=== PATIENT | female | born 1985 | race Caucasian/White ===

== ENCOUNTER 2017-08-19 11:16 | Outpatient (CLI) | payer SELFPAY | END 2017-08-19 11:17 | disposition EMS.NT | LOC: EMS 11:16 | PROVIDERS: ATTEND Surgery | DX: Z72.89 Other problems related to lifestyle (principal) ==

== ENCOUNTER 2018-09-08 22:05 | Outpatient (CLI) | payer SELFPAY ==
--- NOTE | 2018-09-09 00:07 | Ultrasound Report ---
Reason: 1ST TRIMESTER BLEEDING,VIABILITY DATING Procedure Date: 09/08/2018 Accession Number: [id number] / [id number] Procedure: US - OB First Trimester CPT Code: FULL RESULT: EXAM: FIRST TRIMESTER OBSTETRIC ULTRASOUND (Less than 11 weeks) EXAM DATE: 09/08/2018 11:10 PM. CLINICAL HISTORY: First trimester bleeding, viability dating. LMP: Unknown. COMPARISONS: None. TECHNIQUE: Transabdominal and transvaginal ultrasound examination with static image documentation. FINDINGS: Gestational Sac: No intrauterine or extrauterine seen. Placenta: Not visible at this gestational age. Amniotic fluid: Not accurately assessed at this gestational age. Uterus: Unremarkable anteverted appearance. Cervix: Unremarkable. Right Ovary: Volume 12 cc. Normal echotexture and blood flow. Left Ovary: Volume 14 cc. Normal echotexture and blood flow. Free Fluid: None. Other: None. IMPRESSION: No intrauterine or extrauterine seen. Clinical and ultrasound follow-up suggested to ensure viability of and to entirely exclude ectopic. RADIA
== END 2018-09-08 22:06 | disposition home or self-care (01) ==
LOC: DI 22:05
PROVIDERS: ATTEND Midwife
DX: O26.841 Uterine size-date discrepancy, first trimester (principal); O03.4 Incomplete spontaneous abortion without complication
CPT/HCPCS: 76801; 76817

== ENCOUNTER 2018-09-23 11:37 | Emergency (ER) | payer SELFPAY ==
[2018-09-23 12:21] LABS: BILIRUBIN,URINE NEGATIVE (NEGATIVE); GLUCOSE, URINE (UA) NEGATIVE (NEGATIVE); KETONES,URINE (UA) NEGATIVE (NEGATIVE); LEUKOCYTE ESTERASE, URINE NEGATIVE (NEGATIVE); NITRITE,URINE NEGATIVE (NEGATIVE); OCCULT BLOOD,URINE TRACE-LYSE (NEGATIVE); PROTEIN,URINE TRACE mg/dL (NEGATIVE); UROBILINOGEN,URINE 0.2 (NORMAL) E.U./dL (NORMAL)
[2018-09-23 12:36] LABS: BASOPHILS # (AUTO) 0.1 10^3/uL (0.0-0.1); BASOPHILS % (AUTO) 2.8 %; EOSINOPHILS % (AUTO) 0.1 %; HGB - HEMOGLOBIN 14.4 g/dL (12.0-16.0); LYMPHOCYTES # (AUTO) 1.3 10^3/uL (1.5-3.5); LYMPHOCYTES % (AUTO) 40.1 %; MEAN CORPUSCULAR HEMOGLOBIN 34.9 pg (27.0-31.0); MEAN CORPUSCULAR HGB CONC 34.6 g/dL (32.0-36.0); MEAN PLATELET VOLUME 7.3 fL (7.9-10.8); MONOCYTES # (AUTO) 0.4 10^3/uL (0.0-1.0); NEUTROPHILS # (AUTO) 1.5 10^3/uL (1.5-6.6); PLT - PLATELET COUNT 131 10^3/uL (130-450); RED BLOOD COUNT 4.13 10^6/uL (4.20-5.40); RED CELL DISTRIBUTION WIDTH 17.4 % (12.0-15.0); WHITE BLOOD COUNT 3.3 x10^3/uL (4.8-10.8)
[2018-09-23 12:38] LABS: CLARITY,URINE CLEAR (CLEAR); HCG UR QUAL NEGATIVE
--- NOTE | 2018-09-23 12:56 | ED Physician Documentation ---
PD HPI ABD PAIN - Stated complaint Stated Complaint: LLQ PX - Chief complaint Chief Complaint: Abd Pain - History obtained from History obtained from: Patient, Family - History of Present Illness Timing - onset: How many days ago (2) Timing - duration: Days (2) Timing - details: Abrupt onset, Still present Quality: Sharp, Pain Location: LLQ Radiation: Left flank Improved by: Meds (some) Worsened by: Other (nothing) Associated symptoms: Nausea. No: Vomiting Similar symptoms before: Has not had sx before Recently seen: Other (misscarriage) - Additional information Additional information: 33-year-old female who has had a recent miscarriages developed pain in the left lower quadrant radiating to the left flank. The pain is severe and there are no modifying factors. She has been taking some ibuprofen and proven in the pain. She reports that she has had a miscarriage at about 6 weeks and that she has now resolved her cramping and bleeding and this pain has now appeared. She has had a follow up ultrasound without findings in the uterus. She is a poor historian and cannot give details of when and why things were done. She is here with a mother in law. Review of Systems Constitutional: denies: Fever, Chills Respiratory: denies: Cough GI: reports: Abdominal Pain, Nausea. 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 - Present Medications Home Medications: Ambulatory Orders Medication Instructions Recorded Confirmed Clindamycin [Cleocin] 300 mg PO Q6H 7 Days capsule 07/28/17 07/30/17 HYDROcod/ACETAM 5/325 [[place] 5/325] 1 ea PO Q6H PRN #6 tablet 07/28/17 07/30/17 Ibuprofen [Motrin] 400 mg PO Q6H PRN #30 tablet 07/28/17 07/30/17 Levonorgestrel-Ethin Estradiol 1 tab PO DAILY 07/28/17 07/30/17 [[place]issa-28 Tablet] Cephalexin [Keflex] 500 mg PO TID #18 capsule 07/30/17 HYDROcod/ACETAM 5/325 [[place] 5/325] 1 tab PO Q6H PRN #12 tablet 07/30/17 - Allergies Allergies/Adverse Reactions: Allergies Allergy/AdvReac Type Severity Reaction Status Date / Time Penicillins Allergy Unknown Unknown Verified 09/23/18 11:46 - Social History Does the pt smoke?: Yes Smoking Status: Current every day smoker Does the pt drink ETOH?: Yes Does the pt have substance abuse?: No - Immunizations Immunizations are current?: Yes - POLST Patient has POLST: No PD ED PE NORMAL - Vitals Vital signs reviewed: Yes (hypertensive ) - General General: Alert and oriented X 3, Well developed/nourished, Other (33-year-old female appears to be in acute pain with tears in her eyes and some moaning.) - HEENT HEENT: Atraumatic, PERRL, EOMI - Neck Neck: Supple, no meningeal sign - Cardiac Cardiac: RRR, No murmur - Respiratory Respiratory: No respiratory distress, Clear bilaterally - Abdomen Abdomen: Normal bowel sounds, Soft, Non tender, Non distended, No organomegaly - Back Back: No CVA TTP, No spinal TTP - Derm Derm: Normal color, Warm and dry, No rash - Extremities Extremities: No deformity, No edema - Neuro Neuro: Alert and oriented X 3, 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, No motor deficit, No sensory deficit, Normal speech Eye Opening: Spontaneous Motor: Obeys Commands Verbal: Oriented GCS Score: 15 - Psych Psych: Normal affect, Other (mood is painful ) Results - Vitals Vitals: Vital Signs - 24 hr 09/23/18 11:42 Temperature 36.2 C L Heart Rate 70 Respiratory 18 Rate Blood Pressure 138/92 H O2 Saturation 97 Oxygen O2 Source Room air - Labs Labs: Laboratory Tests 09/23/18 09/23/18 09/23/18 12:10 12:10 12:18 WBC 3.3 L RBC 4.13 L Hgb 14.4 Hct 41.7 MCV 101.0 H MCH 34.9 H MCHC 34.6 RDW 17.4 H Plt Count 131 MPV 7.3 L Neut # (Auto) 1.5 Lymph # (Auto) 1.3 L [place] # (Auto) 0.4 Eos # (Auto) 0.0 Baso # (Auto) 0.1 Absolute Nucleated RBC 0.00 Nucleated RBC % 0.1 Sodium Potassium Chloride Carbon Dioxide Anion Gap BUN Creatinine Estimated GFR (MDRD) Glucose Calcium Total Bilirubin AST ALT Alkaline Phosphatase Total Protein Albumin Globulin Albumin/Globulin Ratio Lipase Urine Color YELLOW Urine Clarity CLEAR Urine pH 6.0 Ur Specific [place] 1.015 1.015 Urine Protein TRACE Urine Glucose (UA) NEGATIVE Urine Ketones NEGATIVE Urine Occult Blood TRACE-LYSE Urine Nitrite NEGATIVE Urine Bilirubin NEGATIVE Urine Urobilinogen 0.2 (NORMAL) Ur Leukocyte Esterase NEGATIVE Ur Microscopic Review NOT INDICATED Urine Culture Comments NOT INDICATED Urine HCG, Qual NEGATIVE 09/23/18 12:18 WBC RBC Hgb Hct MCV MCH MCHC RDW Plt Count MPV Neut # (Auto) Lymph # (Auto) [place] # (Auto) Eos # (Auto) Baso # (Auto) Absolute Nucleated RBC Nucleated RBC % Sodium 140 Potassium 3.4 L Chloride 102 Carbon Dioxide 25 Anion Gap 13.0 BUN 11 Creatinine 0.5 Estimated GFR (MDRD) 144 Glucose 84 Calcium 8.6 Total Bilirubin 0.8 AST 148 H ALT 78 H Alkaline Phosphatase 60 Total Protein 7.7 Albumin 4.5 Globulin 3.2 Albumin/Globulin Ratio 1.4 Lipase 47 Urine Color Urine Clarity Urine pH Ur Specific [place] Urine Protein Urine Glucose (UA) Urine Ketones Urine Occult Blood Urine Nitrite Urine Bilirubin Urine Urobilinogen Ur Leukocyte Esterase Ur Microscopic Review Urine Culture Comments Urine HCG, Qual - Rads (name of study) CT abd/pel without Radiology: Prelim report reviewed (Impression: 1. No urinary tract stones or obstruction. 2. Hepatomegaly with steatosis. 3. Osteopenic appearance of the bones. This is not a known finding, bone mineral density measurement is suggested.), EMP read indepedently, See rad report PD MEDICAL DECISION MAKING - ED course Complexity details: reviewed old records, reviewed results, re-evaluated patient, considered differential, d/w patient, d/w family ED course: 33-year-old female with pain in the left side she appear to be in significant pain on arrival to the emergency department she was nontender on examination and CT of the abdomen and pelvis without contrast was obtained to rule out kidney stone. Stone was not found on examination and the patient has had resolution of her pain. She was given Toradol 30 mg intravenously. My evaluation of the patient's CT scan shows an excessive amount of stool and gas throughout the colon and she is administered a dose of milk of magnesia. She does acknowledge a history of resolution of her pain periodically throughout the last 2 days. Departure - Departure Disposition: 01 Home, Self Care Clinical Impression: Constipation Qualifiers: Constipation type: unspecified constipation type Qualified Code(s): K59.00 - Constipation, unspecified Condition: Stable Instructions: ED Constipation Follow-Up: Giovanna Kirk DNP [Primary Care Provider] -
[2018-09-23] MEDS ORDERED: SODIUM CHLORIDE 0.9% 1,000 ML IV ONE (12:58)
[2018-09-23] MEDS ORDERED: KETOROLAC 30 MG/ML VIAL IVP STA (12:58)
--- NOTE | 2018-09-23 13:42 | CT Report ---
Reason: L flank pain Procedure Date: 09/23/2018 Accession Number: [id number] / [id number] Procedure: CT - Abdomen/Pelvis W/O CPT Code: FULL RESULT: EXAM: CT ABDOMEN AND PELVIS (CT KUB) EXAM DATE: 09/23/2018 01:17 PM. CLINICAL HISTORY: L flank pain. COMPARISONS: None available. TECHNIQUE: Routine axial helical CT imaging was performed through the abdomen and pelvis without IV contrast. Reconstructions: Coronal and sagittal. In accordance with CT protocol optimization, one or more of the following dose reduction techniques were utilized for this exam: automated exposure control, adjustment of mA and/or KV based on patient size, or use of iterative reconstructive technique. FINDINGS: Lung Bases: Unremarkable. Right Kidney/Ureter: No stones, hydronephrosis, or hydroureter. No perinephric fat stranding. Left Kidney/Ureter: No stones, hydronephrosis, or hydroureter. No perinephric fat stranding. Other Solid Organs: Diffusely decreased attenuation of the liver consistent with steatosis. The liver is enlarged measuring 22 cm. Gallbladder/Bile Ducts: Unremarkable. Peritoneal Cavity: No free fluid, free air or carina adenopathy. Bowel is grossly unremarkable. Pelvic Organs: No bladder stones or wall thickening. Noncontrast images of the visualized pelvic organs are unremarkable. Vasculature: Unremarkable. Other: There are a few phleboliths noted in the pelvis. No acute skeletal abnormalities. The bones appear diffusely demineralized. IMPRESSION: 1. No urinary tract stones or obstruction. 2. Hepatomegaly with steatosis. 3. Osteopenic appearance of the bones. If this is not a known finding, bone mineral density measurement is suggested. RADIA
[2018-09-23 14:06] LABS: ALBUMIN 4.5 g/dL (3.2-5.5); ALBUMIN/GLOBULIN RATIO 1.4 (1.0-2.2); BILIRUBIN,TOTAL 0.8 mg/dL (0.2-1.0); CALCIUM 8.6 mg/dL (8.5-10.3); CREATININE 0.5 mg/dL (0.4-1.0); TOTAL PROTEIN 7.7 g/dL (6.7-8.2)
[2018-09-23] MEDS ORDERED: MAGNESIUM HYDROXIDE 2,400 MG/30 ML UDC PO STA (14:22)
[2018-09-23 14:36] VITALS: BP 133/87
== END 2018-09-23 14:36 | disposition home or self-care (01) ==
LOC: ED 11:37
DX: K59.00 Constipation, unspecified (principal); K76.0 Fatty (change of) liver, not elsewhere classified; F17.200 Nicotine dependence, unspecified, uncomplicated
CPT/HCPCS: 36415; 74176; 80053; 81003; 81025; 83690; 85025; 96361; 96374; 99283; A9270; 81001; 87086

== ENCOUNTER 2018-10-10 15:12 | Outpatient (CLI) | payer SELFPAY ==
[2018-10-10 18:06] LABS: ALBUMIN 4.6 g/dL (3.2-5.5); ALBUMIN/GLOBULIN RATIO 1.3 (1.0-2.2); BILIRUBIN,TOTAL 0.8 mg/dL (0.2-1.0); CALCIUM 8.9 mg/dL (8.5-10.3); CREATININE 0.5 mg/dL (0.4-1.0); TOTAL PROTEIN 8.2 g/dL (6.7-8.2)
[2018-10-10 18:20] LABS: FOLATE 6.52 ng/mL (5.90 - >24.8)
[2018-10-13 16:26] LABS: ANA SCREEN NEGATIVE (NEGATIVE)
== END 2018-10-10 15:13 | disposition home or self-care (01) ==
LOC: LAB.F 15:12
PROVIDERS: ATTEND Nurse Practitioner
DX: R74.0 Nonspecific elevation of levels of transaminase and lactic acid dehydrogenase [LDH] (principal); K75.81 Nonalcoholic steatohepatitis (NASH); D64.9 Anemia, unspecified
CPT/HCPCS: 36415; 80053; 81599; 82103; 82306; 82607; 82746; 84466; 86038

== ENCOUNTER 2018-10-14 15:01 | Outpatient (CLI) | payer SELFPAY | END 2018-10-14 15:02 | disposition critical access hospital (66) | LOC: EMS 15:01 | PROVIDERS: ATTEND Surgery | DX: R56.9 Unspecified convulsions (principal); R11.0 Nausea; R42 Dizziness and giddiness | CPT/HCPCS: A0425; A0429 ==

== ENCOUNTER 2018-10-14 15:22 | Emergency (ER) | payer SELFPAY ==
[2018-10-14] MEDS ORDERED: LORazepam 2 MG/ML VIAL IVP STA ×2 (16:00→18:01)
[2018-10-14] MEDS ORDERED: THIAMINE INJ 100 MG in SODIUM CHLORIDE 0.9% 50 ML IV STA (16:00)
[2018-10-14] MEDS ORDERED: SODIUM CHLORIDE 0.9% 1,000 ML IV ONE (16:00)
--- NOTE | 2018-10-14 16:02 | ED Physician Documentation ---
PD HPI SEIZURE - Stated complaint Stated Complaint: SIEZURE - Chief complaint Chief Complaint: Neuro - History obtained from History obtained from: Patient - History of Present Illness Timing - onset: Today (This is a 32-year-old woman with history of alcoholism. She was at court today for a DUI hearing, had quit drinking yesterday. She was feeling shaky and anxious and then had a tonic-clonic seizure. She bit her tongue but did not become incontinent. She did hit her head on the way down. At this point she feels basically normal with the exception of symptoms of alcohol withdrawal including shakiness and headache. No hallucinations. She has no history of seizure.) Review of Systems Constitutional: reports: Sweats. 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: Yes Does the pt have substance abuse?: No - Immunizations Immunizations are current?: Yes - POLST Patient has POLST: No PD ED PE NORMAL - Vitals Vital signs reviewed: Yes - General General: Alert and oriented X 3, No acute distress - HEENT HEENT: PERRL, EOMI, Pharynx benign, Other (Left-sided tongue abrasion/laceration, hemostatic.) - Neck Neck: Supple, no meningeal sign, No bony TTP - Cardiac Cardiac: RRR, No murmur - Respiratory Respiratory: No respiratory distress, Clear bilaterally - Abdomen Abdomen: Normal bowel sounds, Soft, Non tender - Back Back: No CVA TTP, No spinal TTP - Neuro Neuro: Alert and oriented X 3, 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3 Eos # (Auto) 0.0 Baso # (Auto) 0.1 Absolute Nucleated RBC 0.00 Nucleated RBC % 0.0 Manual Slide Review Indicated Platelet Estimate DECREASED (<130,000) Platelet Morphology 1+ LARGE PLATELETS RBC Morph Micro Appear NORMAL APPEARANCE Sodium 137 Potassium 3.4 L Chloride 98 L Carbon Dioxide 27 Anion Gap 12.0 BUN 18 Creatinine 0.5 Estimated GFR (MDRD) 144 Glucose 158 H Calcium 8.9 Total Bilirubin 0.6 AST 87 H ALT 57 Alkaline Phosphatase 58 Total Protein 7.6 Albumin 4.3 Globulin 3.3 Albumin/Globulin Ratio 1.3 Lipase 58 H - Rads (name of study) CT Head Radiology: EMP read contemporaneously (NAD) PD MEDICAL DECISION MAKING - ED course ED course: 33yo woman with what sounds like an alcohol w/d sz. Also head inj, feeling better after ativan. Departure - Departure Disposition: 01 Home, Self Care Clinical Impression: Alcohol withdrawal seizure Qualifiers: Complication of substance-induced condition: uncomplicated Qualified Code(s): F10.230 - Alcohol dependence with withdrawal, uncomplicated Head injury Qualifiers: Encounter type: initial encounter Qualified Code(s): S09.90XA - Unspecified injury of head, initial encounter Condition: Good Record reviewed to determine appropriate education?: Yes Instructions: ED Seizure Alcohol Withdrawal Prescriptions: Lorazepam [Ativan] 1 mg PO TID PRN #15 tablet PRN Reason: Anxiety Comments: Call your doctor to arrange a follow-up appointment, make the next available appointment. In the interim, return anytime if worse or if new symptoms develop. Your blood pressure was elevated today on check into the emergency department. This does not mean that you have hypertension, it is a common phenomenon to come to the emergency department and have elevated blood pressure. I recommend that you see your primary care physician within the week to have it rechecked when you are feeling better.
[2018-10-14 16:56] LABS: BASOPHILS # (AUTO) 0.1 10^3/uL (0.0-0.1); BASOPHILS % (AUTO) 1.5 %; HGB - HEMOGLOBIN 13.4 g/dL (12.0-16.0); LYMPHOCYTES # (AUTO) 0.4 10^3/uL (1.5-3.5); LYMPHOCYTES % (AUTO) 9.6 %; MEAN CORPUSCULAR HEMOGLOBIN 34.6 pg (27.0-31.0); MEAN PLATELET VOLUME 7.8 fL (7.9-10.8); MONOCYTES # (AUTO) 0.3 10^3/uL (0.0-1.0); MONOCYTES % (AUTO) 8.3 %; NEUTROPHILS # (AUTO) 3.2 10^3/uL (1.5-6.6); NEUTROPHILS % (AUTO) 80.6 %; PLT - PLATELET COUNT 94 10^3/uL (130-450); RED BLOOD COUNT 3.86 10^6/uL (4.20-5.40); RED CELL DISTRIBUTION WIDTH 15.3 % (12.0-15.0)
[2018-10-14 17:00] LABS: ALBUMIN 4.3 g/dL (3.2-5.5); ALBUMIN/GLOBULIN RATIO 1.3 (1.0-2.2); BILIRUBIN,TOTAL 0.6 mg/dL (0.2-1.0); CALCIUM 8.9 mg/dL (8.5-10.3); CREATININE 0.5 mg/dL (0.4-1.0); TOTAL PROTEIN 7.6 g/dL (6.7-8.2)
--- NOTE | 2018-10-14 17:38 | CT Report ---
Reason: head inj, sz Procedure Date: 10/14/2018 Accession Number: [id number] / [id number] Procedure: CT - Head W/O CPT Code: FULL RESULT: EXAM: CT HEAD EXAM DATE: 10/14/2018 04:53 PM. CLINICAL HISTORY: Head inj, sz. COMPARISON: None. TECHNIQUE: Multiaxial CT images were obtained from the foramen magnum to the vertex. Reformats: Sagittal and coronal. IV contrast: None. In accordance with CT protocol optimization, one or more of the following dose reduction techniques were utilized for this exam: automated exposure control, adjustment of mA and/or KV based on patient size, or use of iterative reconstructive technique. FINDINGS: Parenchyma: No intraparenchymal hemorrhage. No evidence of mass, midline shift, or CT findings of infarction. Guzmán-white differentiation is distinct. Extraaxial Spaces: Normal for age. No subdural or epidural collections identified. Ventricles: Normal in size and position. Sinuses and Orbits: Imaged paranasal sinuses, orbits, and mastoids show no significant abnormality. Bones: No evidence of fracture or calvarial defect. Other: None. IMPRESSION: No acute intracranial abnormality. RADIA
[2018-10-14 17:42] LABS: PLATELET ESTIMATE, MANUAL DECREASED (<130,000) (NORMAL); PLATELET MORPHOLOGY 1+ LARGE PLATELETS (NORMAL); RBC MORPHOLOGY (MULTIPLE) NORMAL APPEARANCE (NORMAL)
[2018-10-14 18:19] LABS: MUDS CUTOFF CONCENTRATIONS CUTOFF CONC BELOW:
[2018-10-14 18:21] LABS: BILIRUBIN,URINE NEGATIVE (NEGATIVE); GLUCOSE, URINE (UA) NEGATIVE (NEGATIVE); KETONES,URINE (UA) 15 mg/dL (NEGATIVE); LEUKOCYTE ESTERASE, URINE NEGATIVE (NEGATIVE); NITRITE,URINE NEGATIVE (NEGATIVE); OCCULT BLOOD,URINE NEGATIVE (NEGATIVE); PROTEIN,URINE TRACE mg/dL (NEGATIVE); UROBILINOGEN,URINE 0.2 (NORMAL) E.U./dL (NORMAL)
[2018-10-14 18:25] LABS: CLARITY,URINE CLEAR (CLEAR); HCG UR QUAL NEGATIVE
[2018-10-14 18:32] LABS: AMPHETAMINE SCREEN,URINE NEGATIVE (NEGATIVE); BENZODIAZEPINES SCREEN, URINE POSITIVE (NEGATIVE); COCAINE SCREEN URINE NEGATIVE (NEGATIVE); METHADONE SCREEN, URINE NEGATIVE (NEGATIVE); METHAMPHETAMINES SCREEN, URINE NEGATIVE (NEGATIVE); OPIATE SCREEN, URINE POSITIVE (NEGATIVE); OXYCODONE SCREEN, URINE NEGATIVE (NEGATIVE); PROPOXYPHENE SCREEN, URINE NEGATIVE (NEGATIVE); TRICYCLIC ANTIDEPRESSANT,URINE NEGATIVE (NEGATIVE)
[2018-10-14 19:04] VITALS: BP 128/89
== END 2018-10-14 19:15 | disposition home or self-care (01) ==
LOC: EDUNIT# → ED 15:22
DX: F10.230 Alcohol dependence with withdrawal, uncomplicated (principal); S09.90XA Unspecified injury of head, initial encounter; S01.512A Laceration without foreign body of oral cavity, initial encounter; X58.XXXA Exposure to other specified factors, initial encounter; R03.0 Elevated blood-pressure reading, without diagnosis of hypertension; F17.200 Nicotine dependence, unspecified, uncomplicated
CPT/HCPCS: 36415; 70450; 80053; 80306; 81003; 81025; 83690; 85025; 96361; 96365; 96375; 96376; 99283; 99284; J2060; J3411; J7040; 81001; 87086

== ENCOUNTER 2018-11-20 11:47 | Emergency (ER) | payer MEDICAID ==
[2018-11-20] MEDS ORDERED: LORazepam 0.5 MG TABLET PO STA (12:36)
[2018-11-20] MEDS ORDERED: THIAMINE 100 MG TABLET PO STA (12:36)
--- NOTE | 2018-11-20 12:38 | ED Physician Documentation ---
History of Present Illness - Stated complaint Stated Complaint: WITHDRAWL - Chief complaint Chief Complaint: General - History obtained from History obtained from: Patient, Friend - History of Present Illness Timing: Today (This is a 33-year-old woman with history of alcoholism. She was seen here about a month ago for an alcohol withdrawal seizure, after which she was actually jailed and using the nursing home withdrawal protocol she did okay in nursing home but immediately went back to drinking after discharge. She drinks about 1/5 of vodka a day. Her last drink was about 2 hours ago. She already feels Mildly shaky. She has no other specific complaints other than being hungry. 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 - Present Medications Home Medications: Ambulatory Orders Medication Instructions Recorded Confirmed No Known Home Medications 11/20/18 11/20/18 - Allergies Allergies/Adverse Reactions: Allergies Allergy/AdvReac Type Severity Reaction Status Date / Time Penicillins Allergy Unknown Unknown Verified 11/20/18 11:55 - Social History Does the pt smoke?: Yes Smoking Status: Current every day smoker Does the pt drink ETOH?: Yes Does the pt have substance abuse?: No - Family History Family history: reports: Non contributory - Immunizations Immunizations are current?: Yes - POLST Patient has POLST: No PD ED PE NORMAL - Vitals Vital signs reviewed: Yes - General General: Alert and oriented X 3, No acute distress - HEENT HEENT: PERRL, EOMI - Neck Neck: Supple, no meningeal sign, No bony TTP - Cardiac Cardiac: RRR, No murmur - Respiratory Respiratory: No respiratory distress, Clear bilaterally - Abdomen Abdomen: Soft, Non tender - Back Back: No CVA TTP, No spinal TTP - Derm Derm: Normal color, Warm and dry - Extremities Extremities: No edema, No calf tenderness / cord - Neuro Neuro: Alert and oriented X 3, Normal speech - Psych Psych: Normal mood, Normal affect Results - Vitals Vitals: Vital Signs - 24 hr 02/11/20/18 11/20/18 11:53 12:58 15:08 Temperature 36.3 C L 36.3 C L 36.6 C Heart Rate 101 H 84 112 H Respiratory 18 18 20 Rate Blood Pressure 138/90 H 123/86 H 130/92 H O2 Saturation 100 99 98 Oxygen O2 Source Room air - Labs Labs: Laboratory Tests 11/20/18 11/20/18 11/20/18 12:50 12:51 12:51 WBC 5.3 RBC 4.10 L Hgb 14.2 Hct 42.4 MCV 103.4 H MCH 34.7 H MCHC 33.5 RDW 14.4 Plt Count 249 MPV 7.5 L Neut # (Auto) 3.4 Lymph # (Auto) 1.7 [place] # (Auto) 0.2 Eos # (Auto) 0.0 Baso # (Auto) 0.1 Absolute Nucleated RBC 0.00 Nucleated RBC % 0.0 PT 11.0 INR 1.0 Sodium 143 Potassium 3.3 L Chloride 104 Carbon Dioxide 27 Anion Gap 12.0 BUN 16 Creatinine 0.5 Estimated GFR (MDRD) 144 Glucose 103 H Calcium 8.7 Total Bilirubin 0.3 AST 36 ALT 25 Alkaline Phosphatase 76 Total Protein 7.8 Albumin 4.1 Globulin 3.7 Albumin/Globulin Ratio 1.1 Lipase 48 Urine Color Urine Clarity Urine pH Ur Specific [place] Urine Protein Urine Glucose (UA) Urine Ketones Urine Occult Blood Urine Nitrite Urine Bilirubin Urine Urobilinogen Ur Leukocyte Esterase Ur Microscopic Review Urine Culture Comments Urine HCG, Qual Salicylates < 6.0 Urine Opiates Screen Ur Oxycodone Screen Urine Methadone Screen Ur Propoxyphene Screen Acetaminophen < 10 L Ur Barbiturates Screen Ur Tricyclics Screen Ur Phencyclidine Scrn Ur Amphetamine Screen U Methamphetamines Scrn U Benzodiazepines Scrn Urine Cocaine Screen U Cannabinoids Screen Ethyl Alcohol 378.0 11/20/18 11/20/18 11/20/18 13:00 13:01 13:01 WBC RBC Hgb Hct MCV MCH MCHC RDW Plt Count MPV Neut # (Auto) Lymph # (Auto) [place] # (Auto) Eos # (Auto) Baso # (Auto) Absolute Nucleated RBC Nucleated RBC % PT INR Sodium Potassium Chloride Carbon Dioxide Anion Gap BUN Creatinine Estimated GFR (MDRD) Glucose Calcium Total Bilirubin AST ALT Alkaline Phosphatase Total Protein Albumin Globulin Albumin/Globulin Ratio Lipase Urine Color YELLOW Urine Clarity CLEAR Urine pH 6.0 Ur Specific [place] 1.025 1.025 Urine Protein NEGATIVE Urine Glucose (UA) NEGATIVE Urine Ketones NEGATIVE Urine Occult Blood TRACE-INTA Urine Nitrite NEGATIVE Urine Bilirubin NEGATIVE Urine Urobilinogen 0.2 (NORMAL) Ur Leukocyte Esterase NEGATIVE Ur Microscopic Review NOT INDICATED Urine Culture Comments NOT INDICATED Urine HCG, Qual NEGATIVE Salicylates Urine Opiates Screen NEGATIVE Ur Oxycodone Screen NEGATIVE Urine Methadone Screen NEGATIVE Ur Propoxyphene Screen NEGATIVE Acetaminophen Ur Barbiturates Screen NEGATIVE Ur Tricyclics Screen NEGATIVE Ur Phencyclidine Scrn NEGATIVE Ur Amphetamine Screen NEGATIVE U Methamphetamines Scrn NEGATIVE U Benzodiazepines Scrn POSITIVE H Urine Cocaine Screen NEGATIVE U Cannabinoids Screen NEGATIVE Ethyl Alcohol PD MEDICAL DECISION MAKING - ED course ED course: student worker saw her and arranged for medical detoxification bed. She is discharged there in stable condition and her will drive. Departure - Departure Disposition: 01 Home, Self Care Clinical Impression: Alcohol abuse Condition: Good Record reviewed to determine appropriate education?: Yes Comments: Go directly to the detox bed as arranged by the social science professor. Discharge Date/Time: 11/20/18 15:11
[2018-11-20 12:55] LABS: BASOPHILS # (AUTO) 0.1 10^3/uL (0.0-0.1); BASOPHILS % (AUTO) 1.2 %; EOSINOPHILS % (AUTO) 0.1 %; HGB - HEMOGLOBIN 14.2 g/dL (12.0-16.0); LYMPHOCYTES # (AUTO) 1.7 10^3/uL (1.5-3.5); LYMPHOCYTES % (AUTO) 31.3 %; MEAN CORPUSCULAR HEMOGLOBIN 34.7 pg (27.0-31.0); MEAN CORPUSCULAR HGB CONC 33.5 g/dL (32.0-36.0); MEAN CORPUSCULAR VOLUME 103.4 fL (81.0-99.0); MEAN PLATELET VOLUME 7.5 fL (7.9-10.8); MONOCYTES # (AUTO) 0.2 10^3/uL (0.0-1.0); MONOCYTES % (AUTO) 3.7 %; NEUTROPHILS # (AUTO) 3.4 10^3/uL (1.5-6.6); NEUTROPHILS % (AUTO) 63.7 %; PLT - PLATELET COUNT 249 10^3/uL (130-450); RED CELL DISTRIBUTION WIDTH 14.4 % (12.0-15.0); WHITE BLOOD COUNT 5.3 x10^3/uL (4.8-10.8)
[2018-11-20 13:08] LABS: ACETAMINOPHEN < 10 ug/mL (10-30); ALBUMIN 4.1 g/dL (3.2-5.5); ALBUMIN/GLOBULIN RATIO 1.1 (1.0-2.2); ALKALINE PHOSPHATASE 76 IU/L (42-121); ALT ALANINE AMINOTRANSFERASE 25 IU/L (10-60); AST ASPARTATE AMINOTRANSFERASE 36 IU/L (10-42); BILIRUBIN,TOTAL 0.3 mg/dL (0.2-1.0); BUN - BLOOD UREA NITROGEN 16 mg/dL (6-20); CALCIUM 8.7 mg/dL (8.5-10.3); CARBON DIOXIDE - CO2 27 mmol/L (21-32); CHLORIDE 104 mmol/L (101-111); CREATININE 0.5 mg/dL (0.4-1.0); GFR - MDRD 144 (>89); GLUCOSE 103 mg/dL (70-100); LIPASE 48 U/L (22-51); SALICYLATE < 6.0 mg/dL; SODIUM 143 mmol/L (135-145); TOTAL PROTEIN 7.8 g/dL (6.7-8.2)
[2018-11-20 13:09] LABS: MUDS CUTOFF CONCENTRATIONS CUTOFF CONC BELOW:
[2018-11-20 13:10] LABS: BILIRUBIN,URINE NEGATIVE (NEGATIVE); GLUCOSE, URINE (UA) NEGATIVE (NEGATIVE); KETONES,URINE (UA) NEGATIVE (NEGATIVE); LEUKOCYTE ESTERASE, URINE NEGATIVE (NEGATIVE); NITRITE,URINE NEGATIVE (NEGATIVE); OCCULT BLOOD,URINE TRACE-INTA (NEGATIVE); PROTEIN,URINE NEGATIVE (NEGATIVE); UROBILINOGEN,URINE 0.2 (NORMAL) E.U./dL (NORMAL)
[2018-11-20 13:13] LABS: CLARITY,URINE CLEAR (CLEAR)
[2018-11-20 13:14] LABS: HCG UR QUAL NEGATIVE
[2018-11-20 13:29] LABS: AMPHETAMINE SCREEN,URINE NEGATIVE (NEGATIVE); BENZODIAZEPINES SCREEN, URINE POSITIVE (NEGATIVE); COCAINE SCREEN URINE NEGATIVE (NEGATIVE); METHADONE SCREEN, URINE NEGATIVE (NEGATIVE); METHAMPHETAMINES SCREEN, URINE NEGATIVE (NEGATIVE); OPIATE SCREEN, URINE NEGATIVE (NEGATIVE); OXYCODONE SCREEN, URINE NEGATIVE (NEGATIVE); PROPOXYPHENE SCREEN, URINE NEGATIVE (NEGATIVE); TRICYCLIC ANTIDEPRESSANT,URINE NEGATIVE (NEGATIVE)
[2018-11-20 15:09] VITALS: BP 130/92
== END 2018-11-20 15:11 | disposition home or self-care (01) ==
LOC: ED 11:47
DX: F10.10 Alcohol abuse, uncomplicated (principal); F17.200 Nicotine dependence, unspecified, uncomplicated
CPT/HCPCS: 36415; 80053; 80306; 80307; 80320; 80329; 81001; 81003; 81025; 83690; 85025; 85610; 87086; 99283; 99284